=== PATIENT | female | born 2000 | race Caucasian/White ===

== ENCOUNTER 2019-03-14 20:28 | Emergency (ER) | payer BC ==
[2019-03-14 20:57] VITALS: BP 130/67
[2019-03-14] MEDS ORDERED: DOXYcycline CAP(*) 100 MG PO ONE (21:16)
--- NOTE | 2019-03-14 21:17 | UC ---
Skin Complaint HPI - HPI Summary HPI Summary: 18-year-old female comes in with a chief complaint of a rash on the left upper arm. She noticed it yesterday and had a bull's-eye appearance with erythema. She was out at a campfire 2 nights ago. She did not see any ticks. No fevers chills feels well otherwise. Since yesterday the rash has consolidated to a more punctate lesion. - History of Current Complaint Chief Complaint: UCBiteInjury Time Seen by Provider: 03/14/19 21:06 Stated Complaint: TICK BITE Hx Last Menstrual Period: "two weeks ago" Pain Intensity: 0 - Allergy/Home Medications Allergies/Adverse Reactions: Allergies Allergy/AdvReac Type Severity Reaction Status Date / Time caterpillars Allergy Hives Uncoded 03/14/19 20:55 PMH/Surg Hx/FS Hx/Imm Hx Previously Healthy: Yes - Surgical History Surgical History: Yes Surgery Procedure, Year, and Place: [place] [facility] - Family History Known Family History: Positive: Non-Contributory - Social History Alcohol Use: Occasionally Substance Use Type: None Smoking Status (MU): Never Smoked Tobacco - Immunization History Vaccination Up to Date: Yes Review of Systems All Other Systems Reviewed And Are Negative: Yes Constitutional: Positive: Negative Skin: Positive: Other - SEE HPI Eyes: Positive: Negative ENT: Positive: Negative Respiratory: Positive: Negative Cardiovascular: Positive: Negative Gastrointestinal: Positive: Negative Motor: Positive: Negative Neurovascular: Positive: Negative Musculoskeletal: Positive: Negative Neurological: Positive: Negative Psychological: Positive: Negative Is Patient Immunocompromised?: No Physical Exam Triage Information Reviewed: Yes Appearance: Well-Appearing, No Pain Distress, Well-Nourished Vital Signs: Initial Vital Signs Temp 98.2 F 03/14/19 20:51 Pulse 56 03/14/19 20:51 Resp 10 03/14/19 20:51 BP 130/67 03/14/19 20:51 Pulse Ox 100 03/14/19 20:51 Vital Signs Reviewed: Yes Eye Exam: Normal Eyes: Positive: Conjunctiva Clear Neck: Positive: Supple Respiratory: Positive: No respiratory distress Musculoskeletal Exam: Normal Musculoskeletal: Positive: Strength Intact, ROM Intact Neurological Exam: Normal Neurological: Positive: Alert, Muscle Tone Normal Psychological Exam: Normal Psychological: Positive: Normal Response To Family, Age Appropriate Behavior Skin: Positive: Other - LEFT UPPER ARM 1CM ERYTHEMA; PATIENT REPORTS IT HAD A BULLS EYE APPEARANCE YESTERDAY Course/Dx - Diagnoses Provider Diagnosis: Erythema migrans (Lyme disease) Discharge - Sign-Out/Discharge Documenting (check all that apply): Patient Departure All imaging exams completed and their final reports reviewed: No Studies - Discharge Plan Condition: Stable Disposition: HOME Prescriptions: DOXYcycline CAP(*) [DOXYcycline 100MG CAP(*)] 100 mg PO BID #27 cap Patient Education Materials: Lyme Disease (ED) Referrals: Felipe Márquez DO [Primary Care Provider] - Additional Instructions: FOLLOW UP WITH YOUR DOCTOR IF NOT COMPLETELY IMPROVED. GET RECHECKED SOONER IF YOUR CONDITION WORSENS OR ANY QUESTIONS OR CONCERNS. - Billing Disposition and Condition Condition: STABLE Disposition: Home
== END 2019-03-14 21:29 | disposition home or self-care (01) ==
LOC: UCCORT 20:28
DX: A26.0 Cutaneous erysipeloid (principal); A69.20 Lyme disease, unspecified
CPT/HCPCS: 99202; A9270-GY; G0463

== ENCOUNTER 2019-03-27 20:24 | Emergency (ER) | payer BC ==
--- NOTE | 2019-03-27 20:40 | UC ---
Skin Complaint HPI - HPI Summary HPI Summary: 18-year-old female who is on day 13 of a 14 day course of doxycycline for a tick bite which she acquired approximately 2 weeks ago. She came in [facility] because she thought she had another tick embedded in her left hip - History of Current Complaint Time Seen by Provider: 03/27/19 20:25 Stated Complaint: TICK BITE Hx Obtained From: Patient Hx Last Menstrual Period: "two weeks ago" ?: No Onset/Duration: Gradual Onset Skin Exposure Onset/Duration: Minutes Ago Timing: Constant Onset Severity: Mild Current Severity: Mild Location: Other - Left hip Aggravating Factor(s): Nothing Alleviating Factor(s): Nothing Associated Signs & Symptoms: Positive: Negative - Allergy/Home Medications Allergies/Adverse Reactions: Allergies Allergy/AdvReac Type Severity Reaction Status Date / Time caterpillars Allergy Hives Uncoded 03/27/19 20:37 PMH/Surg Hx/FS Hx/Imm Hx Previously Healthy: Yes - Surgical History Surgical History: Yes Surgery Procedure, Year, and Place: [place] [facility] - Family History Known Family History: Positive: Non-Contributory - Social History Alcohol Use: Occasionally Substance Use Type: None Smoking Status (MU): Never Smoked Tobacco - Immunization History Vaccination Up to Date: Yes Review of Systems All Other Systems Reviewed And Are Negative: Yes Skin: Positive: Other - Patient thinks she has a tick embedded in her left hip. Is Patient Immunocompromised?: No Physical Exam Triage Information Reviewed: Yes Appearance: Well-Appearing, No Pain Distress, Well-Nourished Vital Signs Reviewed: Yes Musculoskeletal Exam: Normal Neurological Exam: Normal Psychological Exam: Normal Skin: Positive: Other - The area of concern on her left hip, using a magnifying lens, appears to be a very small scab. I do not identify any tick embedded. Course/Dx - Course Course Of Treatment: 18-year-old female who wanted to be checked for possible embedded tick. None was identified however there was a very small scab present. No erythema was present. - Diagnoses Provider Diagnosis: Scab Discharge - Sign-Out/Discharge Documenting (check all that apply): Patient Departure All imaging exams completed and their final reports reviewed: No Studies - Discharge Plan Condition: Fair Disposition: HOME Patient Education Materials: Tick Bite (ED) Referrals: Felipe Márquez DO [Primary Care Provider] - Additional Instructions: Continue the doxycycline and follow up with your primary care provider if you develop fever, chills, body aches or rashes. - Billing Disposition and Condition Condition: FAIR Disposition: Home
[2019-03-27 20:42] VITALS: BP 129/83
== END 2019-03-27 20:51 | disposition home or self-care (01) ==
LOC: UCCORT 20:24
DX: R23.4 Changes in skin texture (principal)
CPT/HCPCS: 99211; G0463